=== PATIENT | male | born 1950 | race Caucasian/White ===

== ENCOUNTER 2021-04-25 06:44 | Observation (INO) ==
[~2021-04-25 06:44] MED LIST: Buffered Lidocaine 1% SYRIN 1 ml INTRADERM ONE; Lactated Ringers 1000 ml BAG 1,000 ML IV SCH
[2021-04-25] MEDS ORDERED: Lidocaine 2% PF 5 ML VIAL ONE (07:03)
[2021-04-25] MEDS ORDERED: Propofol 10 MG/ML 20 ML BTL ONE (07:03)
[2021-04-25] MEDS ORDERED: Dexamethasone IV 4 MG/ML VIAL 1 ml VIAL ONE (07:03)
[2021-04-25] MEDS ORDERED: Ondansetron 4 mg VIAL 2 MG/ML 2 ml VIAL ONE (07:03)
[2021-04-25] MEDS ORDERED: Midazolam 2 mg/2 ml VIAL 1 mg/ml 2 ml VIAL (2 mg) ONE (07:04)
[2021-04-25] MEDS ORDERED: fentaNYL 100 mcg/2 ml 50 MCG/ML VIAL ONE (07:04)
[2021-04-25] MEDS ORDERED: Ropivacaine 5 MG/ML 20 ML VIAL 0.5% (100 MG) ONE (07:06)
[2021-04-25] MEDS ORDERED: ceFAZolin 2 GM PREMIX 2 GM/50 ML BAG ONE (07:22)
[2021-04-25] MEDS ORDERED: ROPIVACAINE 5 MG/ML 30 ML BTL (0.5%) ONE (07:40)
[2021-04-25] MEDS ORDERED: HYDROmorphone 1 MG/1 ML SYRINGE IV PRN (08:33)
[2021-04-25] MEDS ORDERED: Prochlorperazine 5 mg/ml 2 ml VIAL (10 mg) IV PRN (08:33)
[2021-04-25] MEDS ORDERED: diPHENhydraMINE IV 50 MG/ML 1 ml VIAL (BENADRYL) IV PRN ×2 (08:33→10:04)
[2021-04-25] MEDS ORDERED: Naloxone 0.4 mg VIAL 0.4 mg/ml 1 ml VIAL IV PRN (08:33)
[2021-04-25] MEDS ORDERED: Ondansetron 4 mg VIAL 2 MG/ML 2 ml VIAL IV PRN (10:04)
[2021-04-25] MEDS ORDERED: Ondansetron ODT 4 mg TAB 4 MG TAB PO PRN (10:04)
[2021-04-25] MEDS ORDERED: Lactulose 30 ml UDC PO PRN (10:04)
[2021-04-25] MEDS ORDERED: diPHENhydraMINE 25 mg TAB PO PRN (10:04)
[2021-04-25] MEDS ORDERED: Magnesium Hydroxide LIQ 30 ML UDC PO PRN (10:04)
[2021-04-25] MEDS ORDERED: Morphine 2 MG/ML SYRINGE IV PRN (10:04)
[2021-04-25] MEDS ORDERED: Phenylephrine IV 10 MG/ML 1 ml VIAL ONE (10:49)
[2021-04-25] MEDS: Lactated Ringers 1000 ml BAG 1,000 ML IV SCH (12:51)
[2021-04-25] MEDS: ceFAZolin 1 GM ADVAN 1 GM in NS 0.9% 50 ML 50 ML IVPB SCH (15:45)
[2021-04-25] MEDS ORDERED: Dextrose 50% Syringe 50 ml 25 GM/50 ML SYRINGE IV PUSH PRN (17:03)
[2021-04-25] MEDS: Magnesium Hydroxide LIQ 30 ML UDC PO SCH (20:55)
[2021-04-26] MEDS: ceFAZolin 1 GM ADVAN 1 GM in NS 0.9% 50 ML 50 ML IVPB SCH ×2 (00:43→08:24)
[2021-04-26] MEDS: Lactated Ringers 1000 ml BAG 1,000 ML IV SCH (00:43)
[2021-04-26 06:32] LABS: Hematocrit 30 % (42-52); Hemoglobin 10.3 g/dL (14.0-18.0); Mean Platelet Volume 7.2 fL (7.4-10.4); Platelet Count 256 10^3/uL (150-450)
[2021-04-26 06:55] LABS: Calcium 8.6 mg/dL (8.6-10.3); Potassium 4.2 mmol/L (3.5-5.0); eGFR CKD-EPI 98.3 (>60)
[2021-04-26] MEDS: Magnesium Hydroxide LIQ 30 ML UDC PO SCH (08:22)
[2021-04-26] MEDS ORDERED: Vitamin THERAPEUTIC TAB PO SCH (09:00)
[2021-04-26 10:59] VITALS: BP 129/74
== END 2021-04-26 13:15 | disposition home or self-care (01) ==
LOC: SSU 06:44 → OR 06:44
PROVIDERS: ADMIT Orthopaedic Surgery Adult Reconstructive Orthopaedic Surgery; ATTEND Orthopaedic Surgery Adult Reconstructive Orthopaedic Surgery